=== PATIENT | female | born 1940 | race Caucasian/White ===

== ENCOUNTER → 2017-03-28 | Outpatient (CLI) | payer MEDICARE, OTHER ==
--- NOTE | ~2017-03-28 | PUL ---
PATIENT'S NAME: [facility]DA [facility] AGE: 76 Y [address] ROOM: [place] [address] LOCATION: [facility] ADMIT DATE: 03/28/2017 Pulmonary DISCHARGE DATE: FAMILY PHYSICIAN: Robin Valladares MD ATTENDING PHYSICIAN: Robin Valladares NAME OF PROCEDURE: Sleep study PROCEDURE DATE: 03/28/17 TECH: CAMILLE Velazco TEST #: [facility] [place]# [id number] TECHNICAL PARAMETERS: The patient was studied using International 10/20 measuring system. While the patient was studied, there was continuous monitoring of EEG (8 leads), EOG (2 leads), EKG (3 leads), submental EMG (3 leads), tibial (4 leads), respiratory inductive plethysmography (RIP) for thoracic and abdominal effort, oral and nasal airflow with a thermocouple and pressure transducer, and oximetry. The wet process technician also performed visual and auditory observations noting things like body position, patient's status, breath sounds, artifact, snoring level and patient comments. Continuous sound was monitored using a 2-way speaker system and video monitoring was performed using an infrared camera. Review of the entire study was performed epoch by epoch utilizing a single epoch and multiple epoch capability sleep system. MEDICAL HISTORY: The patient is a 76-year-old with daytime sleepiness and snoring. SLEEP STAGE SUMMARY: The patient was studied for 412 minutes of which she slept 236 minutes. She fell asleep in 52 minutes and slept for 57% of the night. Sleep architecture revealed a decline in slow wave and REM sleep. RESPIRATORY SUMMARY: Oxygen saturations ranged from 79-94%. Saturations were below 88% for more than 5 minutes. There were 13 apneas and 120 hypopneas for an apnea/hypopnea index severely elevated at 36 events per hour. The majority of the events occurred too late in the study to allow for initiation of CPAP. EKG SUMMARY: Occasional PVCs were noted. No significant dysrhythmias. LIMB MOVEMENT SUMMARY: No significant periodic limb movements were noted. SUMMARY: Severe obstructive sleep apnea. PLAN: Suggest a repeat study for initiation and titration of CPAP. The PATIENT'S NAME: AMANDA [facility] AGE: 76 Y [address] ROOM: [place] [address] LOCATION: [facility] ADMIT DATE: 03/28/2017 Pulmonary DISCHARGE DATE: FAMILY PHYSICIAN: Robin Valladares MD ATTENDING PHYSICIAN: Robin Valladares patient will receive results from the ordering provider. MD REAGAN JULES/ /[id number] dtt: 04/18/17 0826 , Yusuf Gonzalez. dtd: 03/30/17 1040
== END | disposition disaster alternative care site (69) ==
LOC: GSLP 20:02
DX: G47.10 Hypersomnia, unspecified (principal); G47.33 Obstructive sleep apnea (adult) (pediatric); R06.83 Snoring; R53.83 Other fatigue; R09.02 Hypoxemia